=== PATIENT | female | born 1955 | race Caucasian/White ===

== ENCOUNTER → 2021-10-24 | Outpatient (CLI) | payer OTHER, BC | LOC: SJCVC 13:41 | PROVIDERS: ATTEND Internal Medicine | DX: R94.31 Abnormal electrocardiogram [ECG] [EKG] (principal); I34.0 Nonrheumatic mitral (valve) insufficiency; I44.7 Left bundle-branch block, unspecified; E78.5 Hyperlipidemia, unspecified; Z82.49 Family history of ischemic heart disease and other diseases of the circulatory system; Z79.899 Other long term (current) drug therapy; Z13.220 Encounter for screening for lipoid disorders ==

== ENCOUNTER → 2021-11-02 | Outpatient (CLI) | payer OTHER, BC | LOC: SJCVCIMAG 09:35 | PROVIDERS: ATTEND Internal Medicine | DX: I44.7 Left bundle-branch block, unspecified (principal); I34.0 Nonrheumatic mitral (valve) insufficiency; E78.5 Hyperlipidemia, unspecified; R07.2 Precordial pain; R06.00 Dyspnea, unspecified; I51.7 Cardiomegaly; Z79.899 Other long term (current) drug therapy ==

== ENCOUNTER → 2021-11-23 | Outpatient (CLI) | payer OTHER, BC | LOC: SJCVC 08:08 | PROVIDERS: ATTEND Internal Medicine | DX: Z13.220 Encounter for screening for lipoid disorders (principal) ==